=== PATIENT | female | born 2000 | race Caucasian/White ===

== ENCOUNTER 2019-05-04 16:24 | Emergency (ER) | payer OTHER, MEDICAID ==
[~2019-05-04] VITALS: Ht 144.8 cm; Wt 51.3 kg
[2019-05-04 16:35] VITALS: Ht 144.8 cm; Wt 51.3 kg
[2019-05-04 20:42] VITALS: BP 119/62
== END 2019-05-04 20:42 | disposition home or self-care (01) ==
LOC: ED 16:24
DX: J06.9 Acute upper respiratory infection, unspecified (principal); Z88.0 Allergy status to penicillin; Z88.1 Allergy status to other antibiotic agents; Z88.2 Allergy status to sulfonamides
CPT/HCPCS: Q0092